=== PATIENT | female | born 1975 | race Caucasian/White ===

== ENCOUNTER → 2016-06-28 | Day surgery (SDC) | payer MEDICAID ==
[2016-06-22 08:47] VITALS: BP 119/78
[2016-06-22 10:33] LABS: HEMATOCRIT 41.2 % (36.0-47.0); HEMOGLOBIN 13.5 g/dL (12.0-15.5); HGB HCT DIFFERENCE -0.7; MEAN CORPUSCULAR HEMOGLOBIN 27.1 pg (27.0-33.4); MEAN CORPUSCULAR HGB CONC 32.9 g/dL (32.0-36.0); MEAN CORPUSCULAR VOLUME 83 fl (80-97); WHITE BLOOD COUNT 6.8 10^3/uL (4.0-10.5)
[2016-06-22 10:59] LABS: ANION GAP 12 (5-19); BLOOD UREA NITROGEN 11 mg/dL (7-20); CALCIUM 9.2 mg/dL (8.4-10.2); CARBON DIOXIDE 25 mmol/L (22-30); CHLORIDE 104 mmol/L (98-107); CREATININE RESULT 0.62 mg/dL (0.52-1.25); GLUCOSE 87 mg/dL (75-110); POTASSIUM 3.6 mmol/L (3.6-5.0); SODIUM 140.5 mmol/L (137-145)
--- NOTE | 2016-06-22 21:03 | EKG REPORT ---
SEVERITY:- NORMAL ECG - SINUS RHYTHM : Confirmed by: Jameson Haji MD 22-Jun-2016 21:02:36
[~2016-06-28] MED LIST: BUPIVACAINE HCL 0.5%/EPI 1:200000 INJ 1.8 ML CARTRIDGE ONE; LACTATED RINGERS 1000 ML IV PRN; LIDOCAINE 0.5% INJ-PF (5 MG/ML) 50 ML SDV SUBCUT PRN; LIDOCAINE 2%/EPINEPHRINE INJ 1.7 ML CARTRIDGE ONE
== END ==
LOC: OROUT 10:05
PROVIDERS: ATTEND Dentist Oral and Maxillofacial Surgery
DX: Z01.818 Encounter for other preprocedural examination (principal); K02.9 Dental caries, unspecified
CPT/HCPCS: 36415; 80048; 81025; 85027; 93005; 93010; J3490

== ENCOUNTER 2016-08-07 09:18 | Day surgery (SDC) | payer MEDICAID ==
[2016-08-06 11:41] LABS: HEMATOCRIT 38.6 % (36.0-47.0); HEMOGLOBIN 12.7 g/dL (12.0-15.5); HGB HCT DIFFERENCE -0.5; MEAN CORPUSCULAR HEMOGLOBIN 28.2 pg (27.0-33.4); MEAN CORPUSCULAR HGB CONC 32.8 g/dL (32.0-36.0); MEAN CORPUSCULAR VOLUME 86 fl (80-97); RED BLOOD COUNT 4.49 10^6/uL (3.72-5.28); RED CELL DISTRIBUTION WIDTH 14.3 % (11.5-14.0); WHITE BLOOD COUNT 5.2 10^3/uL (4.0-10.5)
[~2016-08-07 09:18] MED LIST changes: -BUPIVACAINE HCL 0.5%/EPI 1:200000 INJ 1.8 ML CARTRIDGE ONE; -LACTATED RINGERS 1000 ML IV PRN; +LIDOCAINE 0.5% INJ-PF (5 MG/ML) 50 ML SDV INJ PRN; -LIDOCAINE 0.5% INJ-PF (5 MG/ML) 50 ML SDV SUBCUT PRN; -LIDOCAINE 2%/EPINEPHRINE INJ 1.7 ML CARTRIDGE ONE; +RINGERS SOLUTION,LACTATED 1,000 ML IV PRN
[2016-08-07] MEDS ORDERED: LIDOCAINE 2%/EPINEPHRINE INJ 1.7 ML CARTRIDGE ONE (11:13)
[2016-08-07] MEDS ORDERED: BUPIVACAINE HCL 0.5%/EPI 1:200000 INJ 1.8 ML CARTRIDGE ONE (11:13)
[2016-08-07] MEDS ORDERED: MIDAZOLAM 2 MG/2 ML INJ ONE (11:23)
[2016-08-07] MEDS ORDERED: FENTANYL CITRATE INJ/PF 100 MCG/2 ML AMPUL ONE (11:23)
[2016-08-07] MEDS ORDERED: PROPOFOL INJ 200 MG/20 ML VIAL IV ONE (11:24)
--- NOTE | 2016-08-07 13:12 | Operative Report ---
Operative Report DATE OF SURGERY: 08/07/16 PREOPERATIVE DIAGNOSIS: Dental caries POSTOPERATIVE DIAGNOSIS: Same OPERATION: Surgical removal of teeth numbers 3, 5, 6, 7, 8, 9, 10, 11, 12, 14, 15, 16, 21, 23, 28 and 29 with alveoloplasties of the upper right and upper left quadrants SURGEON: BHAKTI TAN ANESTHESIA: GA TISSUE REMOVED OR ALTERED: Teeth which were discarded COMPLICATIONS: None ESTIMATED BLOOD LOSS: 30 mL INTRAOPERATIVE FINDINGS: Nonrestorable teeth PROCEDURE: The patient was brought into operating room #3 and placed on the operating room table in supine position. General anesthesia was induced via a peripheral IV and continued utilizing endotracheal intubation. The patient was then prepped and draped in the usual fashion for an intraoral procedure. A total of 5 carpules of 2% lidocaine with 1:100,000 epinephrine and 2 carpules of half percent Marcaine with 1:200,000 epinephrine were delivered to the planned surgical sites via both infiltration and nerve block. The oral cavity and oropharynx were suctioned and a moistened oropharyngeal throat pack was placed. A bite block was used throughout the procedure. Full-thickness mucoperiosteal flaps were developed via envelope incisions. Ostectomy was completed as needed. Teeth were delivered using elevators and forceps. Alveoloplasties were completed using rongeurs and bone file. The sockets were curetted free of any debris and irrigated with normal saline solution. The flaps were reapproximated and sutured using 4-0 chromic gut suture in an interrupted fashion. The oral cavity was again suctioned. The throat pack was removed and the oropharynx suctioned. Gauze packs were placed bilaterally to aid in continued hemostasis. The patient was awakened from general anesthesia, extubated in the operating room and taken to recovery room in spontaneous breathing fashion.
[2016-08-07] MEDS ORDERED: OXYCODONE-ACETAMINOPHEN 5-325 MG TABLET PO PRN (13:29)
[2016-08-07] MEDS ORDERED: OXYCODONE-ACETAMINOPHEN 5-325 MG TABLET ONE (14:06)
[2016-08-07 14:58] VITALS: BP 115/84
[2016-08-07] MEDS ORDERED: ROCURONIUM BROMIDE INJ 50 MG/5 ML VIAL IV ONE (15:22)
[2016-08-07] MEDS ORDERED: SUCCINYLCHOLINE CHLORIDE INJ 200 MG/10 ML VIAL ONE (15:22)
--- NOTE | 2016-08-07 23:59 | EKG REPORT ---
SEVERITY:- NORMAL ECG - SINUS RHYTHM : Confirmed by: Dahlia Jones 07-Aug-2016 23:58:31
== END 2016-08-07 15:05 | disposition home or self-care (01) ==
LOC: OROUT 09:18
PROVIDERS: ATTEND Dentist Oral and Maxillofacial Surgery
PROC: 0NQSXZZ (ICD-10-PCS; 2016-08-07)
PROC: 0NQRXZZ Repair Maxilla, External Approach (ICD-10-PCS; principal; 2016-08-07 12:00)
DX: K02.9 Dental caries, unspecified (principal); E66.9 Obesity, unspecified
CPT/HCPCS: 36415; 82962; 85027; 81025; 93005; 93010; 41899; 41874 ×2; J2250; J3490 ×3; J3010; J0330; J2704; 170

== ENCOUNTER 2017-01-11 10:38 | Emergency (ER) | payer MEDICAID ==
[2017-01-11] MEDS ORDERED: ONDANSETRON HCL INJ/PF 4 MG/2 ML SDV IV ONE (11:10)
[2017-01-11 11:39] LABS: ABSOLUTE BASOPHILS # (AUTO) 0.1 10^3/uL (0.0-0.2); ABSOLUTE EOSINOPHILS # (AUTO) 0.4 10^3/uL (0.0-0.6); ABSOLUTE LYMPHOCYTES (AUTO) 1.5 10^3/uL (0.5-4.7); ABSOLUTE MONOCYTES (AUTO) 0.6 10^3/uL (0.1-1.4); ABSOLUTE NEUT (AUTO) 4.3 10^3/uL (1.7-8.2); BASOPHILS % (AUTO) 0.8 % (0-2); EOSINOPHILS % (AUTO) 5.2 % (0-6); HEMATOCRIT 43.8 % (36.0-47.0); HGB HCT DIFFERENCE -1.8; LYMPHOCYTES % (AUTO) 22.4 % (13-45); MEAN CORPUSCULAR HEMOGLOBIN 26.7 pg (27.0-33.4); MEAN CORPUSCULAR HGB CONC 31.9 g/dL (32.0-36.0); MEAN CORPUSCULAR VOLUME 84 fl (80-97); MONOCYTES % (AUTO) 9.1 % (3-13); RED BLOOD COUNT 5.23 10^6/uL (3.72-5.28); SEGMENTED NEUTROPHILS % (AUTO) 62.5 % (42-78); WHITE BLOOD COUNT 6.9 10^3/uL (4.0-10.5)
--- NOTE | 2017-01-11 11:43 | ER Document Report ---
ED Medical Screen (RME) - General TRAVEL OUTSIDE OF THE [place] IN LAST 30 DAYS: No <JAZZ SIDHU - Last Filed: 01/11/17 12:24> <HUGO HILL - Last Filed: 01/11/17 21:09> - General Chief Complaint: Won't Eat Stated Complaint: LOSS OF APPETITE Time Seen by Provider: 01/11/17 11:03 Notes: Patient is a 41 year old female presenting to the emergency department for vomiting. Patient saw her PCP last Saturday and was started on Paxil and xanax. Patient states on Saturday she started vomiting with nausea. Katynet is unsure if the vomiting is being caused by her new medications. Patient is able to keep fluids down but is not able to keep solids down because she gets too nauseated to eat them. Patient states she has anxiety and has been quite depressed recently. Patient states she has been doing better with the xanax but worse since she started vomiting. Patient states she has Patient has a surgical history of cardiac ablation, gastric bypass, and cholecystectomy. PCP [facility] I have greeted and performed a rapid initial assessment of this patient. A comprehensive ED assessment and evaluation of the patient, analysis of test results and completion of the medical decision making process will be conducted by additional ED providers. (JAZZ SIDHU) - Related Data Allergies/Adverse Reactions: hydrocodone [From Vicodin] Allergy (Intermediate, Verified 01/11/17 10:49) ITCHING Penicillins Allergy (Intermediate, Verified 01/11/17 10:49) VOMITING, ITCHING Past Medical History - Social History Cigarette use (# per day): No Chew tobacco use (# tins/day): No Frequency of alcohol use: Occasional Drug Abuse: None - Past Medical History Cardiac Medical History: Denies: Hx Coronary Artery Disease, Hx Heart Attack, Hx Hypertension Pulmonary Medical History: Denies: Hx Asthma, Hx Bronchitis, Hx COPD, Hx Pneumonia Neurological Medical History: Denies: Hx Cerebrovascular Accident, Hx Seizures Renal/ Medical History: Denies: Hx Peritoneal Dialysis Musculoskeltal Medical History: Denies Hx Arthritis Psychiatric Medical History: Reports: Hx Anxiety Past Surgical History: Reports: Hx Abdominal Surgery - gastric bypass, Hx Cholecystectomy, Hx Gastric Bypass Surgery - About 2009, Hx Tubal Ligation, Hx Umbilical Hernia - Immunizations Hx Diphtheria, Pertussis, Tetanus Vaccination: Yes <JAZZ SIDHU - Last Filed: 01/11/17 12:24> Physical Exam <JAZZ SIDHU - Last Filed: 01/11/17 12:24> <HUGO HILL - Last Filed: 01/11/17 21:09> - Vital signs Vitals: Temp Pulse Resp BP Pulse Ox 98.3 F 98 20 135/89 H 99 01/11/17 10:49 01/11/17 10:49 01/11/17 10:49 01/11/17 10:49 01/11/17 10:49 - Notes Notes: GENERAL: Alert, interacts well. No acute distress. LUNGS: Clear to auscultation bilaterally, no wheezes, rales, or rhonchi. No respiratory distress. HEART: Regular rate and rhythm. No murmurs, gallops, or rubs. (JAZZ SIDHU) Course - Laboratory Result Diagrams: 01/11/17 11:16 01/11/17 11:16 <JAZZ SIDHU - Last Filed: 01/11/17 12:24> - Laboratory Result Diagrams: 01/11/17 11:16 01/11/17 11:16 <HUGO HILL - Last Filed: 01/11/17 21:09> - Vital Signs Vital signs: Temp Pulse Resp BP Pulse Ox 98.1 F 79 20 111/61 99 01/11/17 13:35 01/11/17 13:35 01/11/17 10:49 01/11/17 13:35 01/11/17 13:35 - Laboratory Laboratory results interpreted by me: 01/11/17 01/11/17 01/11/17 11:16 11:16 11:16 MCH 26.7 L MCHC 31.9 L Glucose 121 H AST 53 H Total Protein 8.6 H Urine Protein 30 H Urine Ketones TRACE H Ur Leukocyte Esterase SMALL H Doctor's Discharge <JAZZ SIDHU - Last Filed: 01/11/17 12:24> <HUGO HILL - Last Filed: 01/11/17 21:09> - Discharge Clinical Impression: Decreased appetite, Depression with anxiety Condition: Stable Disposition: HOME, SELF-CARE Instructions: Depression ([facility]) Additional Instructions: Please follow-up with your psychiatrist per your previous appointment or return immediately if there are any other concerns Scribe Documentation - Scribe Written by Scribe:: Omar Canela 01/11/17 1145 acting as scribe for :: Alec <JAZZ SIDHU - Last Filed: 01/11/17 12:24>
[2017-01-11 11:46] LABS: APPEARANCE,URINE CLOUDY; BILIRUBIN,URINE NEGATIVE (NEGATIVE); CALCIUM OXALATE CRYSTALS,URINE MANY /HPF; GLUCOSE, URINE NEGATIVE (NEGATIVE); KETONES,URINE TRACE mg/dL (NEGATIVE); LEUKOCYTE ESTERASE,URINE SMALL (NEGATIVE); NITRITE,URINE NEGATIVE (NEGATIVE); PROTEIN,URINE 30 mg/dL (NEGATIVE); URINE SPECIFIC GRAVITY 1.027; UROBILINOGEN,URINE NEGATIVE mg/dL (<2.0)
--- NOTE | 2017-01-11 11:46 | RADIOLOGY REPORT (SQ) ---
EXAM DESCRIPTION: ACUTE ABDOMEN SERIES COMPLETED DATE/TIME: 01/11/2017 11:33 am REASON FOR STUDY: vomiting, remote hx gastric bypass COMPARISON: None. NUMBER OF VIEWS: Three views. TECHNIQUE: Frontal chest, supine abdomen and upright/decubitus abdomen radiographic images acquired. LIMITATIONS: None. FINDINGS: CHEST: Lungs clear of infiltrates. FREE AIR: None. No abnormal gas collections. BOWEL GAS PATTERN: Nonobstructive pattern. No dilated loops or air fluid levels. CALCIFICATIONS: No suspicious calcifications. HARDWARE: None in the abdomen. SOFT TISSUES: No gross mass or suggestion of organomegaly. BONES: No acute fracture. No worrisome bone lesions. OTHER: No other significant finding. IMPRESSION: NO RADIOGRAPHIC EVIDENCE FOR ACUTE ABDOMINAL DISEASE. TECHNICAL DOCUMENTATION: JOB ID: [id number] [employer]- All Rights Reserved
[2017-01-11 11:56] LABS: ALBUMIN 4.7 g/dL (3.5-5.0); ALKALINE PHOSPHATASE 113 U/L (38-126); ASPARTATE AMINO TRANSFERASE 53 U/L (14-36); BILIRUBIN,DIRECT 0.4 mg/dL (0.0-0.4); BLOOD UREA NITROGEN 10 mg/dL (7-20); CALCIUM 9.6 mg/dL (8.4-10.2); CARBON DIOXIDE 26 mmol/L (22-30); CHLORIDE 104 mmol/L (98-107); CREATININE RESULT 0.68 mg/dL (0.52-1.25); GLUCOSE 121 mg/dL (75-110); TOTAL PROTEIN 8.6 g/dL (6.3-8.2)
[2017-01-11 11:57] LABS: ALANINE AMINOTRANSFERASE 40 U/L (9-52); ANION GAP 13 (5-19); POTASSIUM 3.6 mmol/L (3.6-5.0)
--- NOTE | 2017-01-11 13:29 | ER Document Report ---
ED General - General Chief Complaint: Won't Eat Stated Complaint: LOSS OF APPETITE Time Seen by Provider: 01/11/17 11:10 Mode of Arrival: Ambulatory Information source: Patient Notes: 41-year-old female history of depression presents with complaints of decreased appetite. Patient notes she was started on Paxil for 2 days and has not wanted to eat since. Patient denies any fevers or chills denies any abdominal pain states she just does not feel like eating. Patient did have episodes of vomiting initially TRAVEL OUTSIDE OF THE [place] IN LAST 30 DAYS: No - HPI Onset: Other - Over the past 4 days Onset/Duration: Persistent Quality of pain: No pain Severity: Mild Pain Level: Denies Associated symptoms: Nausea, Vomiting Exacerbated by: Denies Relieved by: Denies Similar symptoms previously: No Recently seen / treated by doctor: No - Related Data Allergies/Adverse Reactions: hydrocodone [From Vicodin] Allergy (Intermediate, Verified 01/11/17 10:49) ITCHING Penicillins Allergy (Intermediate, Verified 01/11/17 10:49) VOMITING, ITCHING Past Medical History - Social History Smoking Status: Never Smoker Cigarette use (# per day): No Chew tobacco use (# tins/day): No Smoking Education Provided: No Frequency of alcohol use: Occasional Drug Abuse: None Family History: Reviewed & Not Pertinent, Other - Mother with history of arrhythmia. - Past Medical History Cardiac Medical History: Denies: Hx Coronary Artery Disease, Hx Heart Attack, Hx Hypertension Pulmonary Medical History: Denies: Hx Asthma, Hx Bronchitis, Hx COPD, Hx Pneumonia Neurological Medical History: Denies: Hx Cerebrovascular Accident, Hx Seizures Renal/ Medical History: Denies: Hx Peritoneal Dialysis Musculoskeltal Medical History: Denies Hx Arthritis Psychiatric Medical History: Reports: Hx Anxiety Past Surgical History: Reports: Hx Abdominal Surgery - gastric bypass, Hx Cholecystectomy, Hx Gastric Bypass Surgery - About 2009, Hx Tubal Ligation, Hx Umbilical Hernia - Immunizations Hx Diphtheria, Pertussis, Tetanus Vaccination: Yes Review of Systems - Review of Systems Notes: REVIEW OF SYSTEMS: CONSTITUTIONAL : Denies fever, chills, or sweats. Denies recent illness. EENT: Denies eye, ear, throat, or mouth pain or symptoms. Denies nasal or sinus congestion or discharge. Denies throat, tongue, or mouth swelling or difficulty swallowing. CARDIOVASCULAR: Denies chest pain. Denies palpitations or racing or irregular heart beat. Denies ankle edema. RESPIRATORY: Denies cough, cold, or chest congestion. Denies shortness of breath, difficulty breathing, or wheezing. GASTROINTESTINAL: Admits to nausea vomiting decreased appetite GENITOURINARY: Denies difficulty urinating, painful urination, burning, frequency, blood in urine, or discharge. FEMALE GENITOURINARY: Denies vaginal bleeding, heavy or abnormal periods, irregular periods. Denies vaginal discharge or odor. MUSCULOSKELETAL: Denies back or neck pain or stiffness. Denies joint pain or swelling. SKIN: Denies rash, lesions or sores. HEMATOLOGIC : Denies easy bruising or bleeding. LYMPHATIC: Denies swollen, enlarged glands. NEUROLOGICAL: Denies confusion or altered mental status. Denies passing out or loss of consciousness. Denies dizziness or lightheadedness. Denies headache. Denies weakness or paralysis or loss of use of either side. Denies problems with gait or speech. Denies sensory loss, numbness, or tingling. Denies seizures. PSYCHIATRIC: Admits to chronic depression denies any suicidal homicidal ideations ALL OTHER SYSTEMS REVIEWED AND NEGATIVE. PHYSICAL EXAMINATION: GENERAL: Well-appearing, well-nourished and in no acute distress. HEAD: Atraumatic, normocephalic. EYES: Pupils equal round and reactive to light, extraocular movements intact, conjunctiva are normal. ENT: Nares patent, oropharynx clear without exudates. Moist mucous membranes. NECK: Normal range of motion, supple without lymphadenopathy LUNGS: Breath sounds clear to auscultation bilaterally and equal. No wheezes rales or rhonchi. HEART: Regular rate and rhythm without murmurs ABDOMEN: Soft, nontender, nondistended abdomen. No guarding, no rebound. No masses appreciated. Female : deferred Musculoskeletal: Normal range of motion, no pitting or edema. No cyanosis. NEUROLOGICAL: Cranial nerves grossly intact. Normal speech, normal gait. Normal sensory, motor exams PSYCH: N admits to depression and anxiety SKIN: Warm, Dry, normal turgor, no rashes or lesions noted. Dictation was performed using [employer] voice recognition software Physical Exam - Vital signs Vitals: Temp Pulse Resp BP Pulse Ox 98.3 F 98 20 135/89 H 99 01/11/17 10:49 01/11/17 10:49 01/11/17 10:49 01/11/17 10:49 01/11/17 10:49 Course - Re-evaluation Re-evalutation: 01/11/17 13:28 01/11/17 16:18 Patient's lab work noted no significant abnormality, patient overall looks well weighs 110 kg and is in no respiratory distress or having any pain anywhere, patient was discussed regarding her depression mental health evaluate the patient as well, patient does have follow-up with her own psychiatrist and I believe that her medications need to be adjusted as she has stopped taking her Paxil. Given the patient has no suicidal homicidal ideations there is no IVC criteria patient is not a harm to herself or others I believe she is stable for discharge After performing a Medical Screening Examination, I estimate there is LOW risk for ACUTE APPENDICITIS, BOWEL OBSTRUCTION, ACUTE CHOLECYSTITIS, PERFORATED DIVERTICULITIS, INCARCERATED HERNIA, PANCREATITIS, PELVIC INFLAMMATORY DISEASE, PERFORATED ULCER, ECTOPIC , or TUBO-OVARIAN ABSCESS, thus I consider the discharge disposition reasonable. Also, there is no evidence or peritonitis , sepsis, or toxicity. I have reevaluated this patient multiple times and no significant life threatening changes are noted. The patient and I have discussed the diagnosis and risks, and we agree with discharging home with close follow-up with the understanding that symptoms and presentations can change. We also discussed returning to the Emergency Department immediately if new or worsening symptoms occur. We have discussed the symptoms which are most concerning (e.g., bloody stool, fever, changing or worsening pain, vomiting) that necessitate immediate return. - Vital Signs Vital signs: Temp Pulse Resp BP Pulse Ox 98.1 F 79 20 111/61 99 01/11/17 13:35 01/11/17 13:35 01/11/17 10:49 01/11/17 13:35 01/11/17 13:35 - Laboratory Result Diagrams: 01/11/17 11:16 01/11/17 11:16 Laboratory results interpreted by me: 01/11/17 01/11/17 01/11/17 11:16 11:16 11:16 MCH 26.7 L MCHC 31.9 L Glucose 121 H AST 53 H Total Protein 8.6 H Urine Protein 30 H Urine Ketones TRACE H Ur Leukocyte Esterase SMALL H - Diagnostic Test Radiology reviewed: Image reviewed, Reports reviewed - No acute abnormality Discharge - Discharge Clinical Impression: Decreased appetite, Depression with anxiety Condition: Stable Disposition: HOME, SELF-CARE Instructions: Depression ([facility]) Additional Instructions: Please follow-up with your psychiatrist per your previous appointment or return immediately if there are any other concerns
[2017-01-11 13:37] VITALS: BP 111/61
== END 2017-01-11 13:56 | disposition home or self-care (01) ==
LOC: ER 10:38
DX: R63.0 Anorexia (principal); F41.8 Other specified anxiety disorders; R11.2 Nausea with vomiting, unspecified; Z88.6 Allergy status to analgesic agent; Z88.0 Allergy status to penicillin; Z90.49 Acquired absence of other specified parts of digestive tract; Z98.84 Bariatric surgery status
CPT/HCPCS: 99284; 96374; 36415; 83690; 84703; 85025; 80053; 81001; 74022; J2405

== ENCOUNTER → 2017-05-08 | Outpatient (CLI) | payer MEDICAID ==
--- NOTE | 2017-05-08 14:25 | RADIOLOGY REPORT (SQ) ---
EXAM DESCRIPTION: LUMBAR SPINE COMPLETE COMPLETED DATE/TIME: 05/08/2017 1:31 pm REASON FOR STUDY: LOW BACK PAIN M54.5 LOW BACK PAIN COMPARISON: None. NUMBER OF VIEWS: Five views including obliques. TECHNIQUE: AP, lateral, oblique, and sacral radiographic images acquired of the lumbar spine. LIMITATIONS: None. FINDINGS: MINERALIZATION: Normal. SEGMENTATION: Normal. No transitional anatomy. ALIGNMENT: Normal. VERTEBRAE: There is mild deformity of the L1 vertebral body anteriorly. This may be developmental. DISCS: There is mild narrowing at L4-5 and L5-S1. POSTERIOR ELEMENTS: Pedicles and facets are intact. No pars defect or posterior arch defects. HARDWARE: None in the spine. PARASPINAL SOFT TISSUES: Normal. PELVIS: Intact as visualized. No fractures or worrisome bone lesions. SI joints intact. OTHER: No other significant finding. IMPRESSION: 1. Mild degenerative disc changes and as described. 2. There is an unusual appearance to the superior anterior aspect of the L1 vertebral body. Cannot entirely exclude an expansile lesion. Consider bone scan to see if this is metabolically active. Co ider MRI. TECHNICAL DOCUMENTATION: JOB ID: [id number]- All Rights Reserved
== END ==
LOC: OD 13:18
PROVIDERS: ATTEND Physician Assistant
DX: M54.5 Low back pain (principal)
CPT/HCPCS: 72110

== ENCOUNTER → 2017-08-16 | Outpatient (CLI) | payer MEDICAID ==
--- NOTE | 2017-08-16 16:40 | RADIOLOGY REPORT (SQ) ---
EXAM DESCRIPTION: NM 3 PHASE BONE SCAN COMPLETED DATE/TIME: 08/16/2017 3:00 pm REASON FOR STUDY: CHRONIC BILATERAL LOW BACK PAIN W/O SCIATICA M54.5 LOW BACK PAIN COMPARISON: Three-way abdomen series [id number] CT chest 02/21/2016 Plain films lumbar spine 05/08/2017 RADIONUCLIDE AND DOSE: 21.2 millicuries Tc99m HDP The route of agent administration: Intravenous. ADDITIONAL DRUGS AND DOSES: None. TECHNIQUE: Following injection of the radiopharmaceutical, serial blood flow images acquired. Equil ibrium blood pool images then acquired. Routine delayed images at 3 hours acquired of the areas of c linical concern with additional focused images as needed. AREA OF INTEREST: Bony pelvis LIMITATIONS: None. FINDINGS: VASCULAR FLOW IMAGES: No asymmetry or focal areas of hyperemia. BLOOD POOL IMAGES: No asymmetry or focal areas of soft-tissue hyper-perfusion. BONES: Normal bony pelvis visualization without areas of photopenia or increased bony uptake of radio pharmaceutical. Additional spot films over the ribs, and thoracic and lumbar spine were obtained. No increased uptak e worrisome for occult fracture. No increased uptake over the disc levels or posterior elements. KIDNEYS: Symmetric excretion without obstruction. OTHER: No other significant finding. IMPRESSION: NORMAL 3 PHASE BONE SCAN. COMMENT: Quality measure 147: Current bone scan is compared with any available plain radiographs, p rior bone scans, and CT/MRI. TECHNICAL DOCUMENTATION: JOB ID: [id number] [employer]- All Rights Reserved Reading location - IP/workstation name: [email or web address]
== END ==
LOC: RAD 10:13
PROVIDERS: ATTEND Physician Assistant
DX: M54.5 Low back pain (principal)
CPT/HCPCS: 78315; A9561; Q9969